=== PATIENT | male | born 1965 | race Caucasian/White ===

== ENCOUNTER 2017-03-15 16:58 | Emergency (ER) | payer BC ==
[2017-03-15 17:13] VITALS: BP 135/90
--- NOTE | 2017-03-15 18:07 | RAD ---
HISTORY: Left ankle pain COMPARISONS: None VIEWS: 3, Frontal, lateral, and oblique views of the left ankle FINDINGS: BONE DENSITY: Normal. BONES: There is nondisplaced fracture of the distal fibula. JOINTS: There is no arthropathy. There is joint effusion. ALIGNMENT: There is no dislocation. SOFT TISSUES: Unremarkable. OTHER FINDINGS: None. IMPRESSION: 1. NONDISPLACED FRACTURE OF THE LATERAL MALLEOLUS. 2. JOINT EFFUSION.
[2017-03-15] MEDS ORDERED: oxyCODONE/Acetamin 5/325 MG* TAB PO ONE (18:49)
--- NOTE | 2017-03-15 19:59 | ED ---
Lower Extremity - HPI Summary HPI Summary: 51M presents with left ankle pain for a day. He rolled his ankle in. He denies any numbness or tingling. He has swelling over the lateral aspect of his ankle. He has still be able to ambulate with it. [place] is from out of town. He has not taken anything for pain. He states he only has pain if he tries to move it. He denies any previous injury to the area. - History of Current Complaint Chief Complaint: EDExtremityLower Stated Complaint: LEFT ANKLE INJURY Time Seen by Provider: 03/15/17 18:42 Pain Intensity: 5 PMH/Surg Hx/FS Hx/Imm Hx Endocrine/Hematology History: Denies: Hx Anticoagulant Therapy Cardiovascular History: Denies: Hx Hypertension Infectious Disease History: Denies: Traveled Outside the [place] in Last 30 Days - Family History Known Family History: Positive: Cardiac Disease - Social History Alcohol Use: Occasionally Substance Use Type: Reports: None Smoking Status (MU): Never Smoked Tobacco Review of Systems Negative: Fever Negative: Chest Pain Negative: Shortness Of Breath Positive: Myalgia - left ankle All Other Systems Reviewed And Are Negative: Yes Physical Exam Triage Information Reviewed: Yes Vital Signs On Initial Exam: Initial Vitals Temp Pulse Resp BP Pulse Ox 98.3 F 67 20 135/90 98 03/15/17 17:05 03/15/17 17:05 03/15/17 17:05 03/15/17 17:05 03/15/17 17:05 Vital Signs Reviewed: Yes Appearance: Positive: Well-Appearing Skin: Positive: Warm, Dry Head/Face: Positive: Normal Head/Face Inspection Eyes: Positive: Normal, Conjunctiva Clear Respiratory/Lung Sounds: Positive: Clear to Auscultation, Breath Sounds Present Cardiovascular: Positive: Normal, RRR Musculoskeletal: Positive: Limited @ - left ankle, Edema Left - lateral aspect of ankle, Other - good pulses, capillary refill<2secs Procedures - Splinting Location: ankle Hand-Made Type: fiberglass Splint: sugar-tong Pre-Proc Neuro Vasc Exam: normal Post-Proc Neuro Vasc Exam: normal Diagnostics - Vital Signs Vital Signs Temp Pulse Resp BP Pulse Ox 03/15/17 17:05 98.3 F 67 20 135/90 98 - Laboratory Lab Statement: Any lab studies that have been ordered have been reviewed, and results considered in the medical decision making process. - Radiology ankle Xray Interpretation: Positive (See Comments) - fibula fx Radiology Interpretation Completed By: Radiologist Lower Extremity Course/Dx - Course Course Of Treatment: 51M presents with left ankle pain for a day. He rolled his ankle in. He denies any numbness or tingling. He has swelling over the lateral aspect of his ankle. He has still be able to ambulate with it. He is from [place] of town. He has not taken anything for pain. He states he only has pain if he tries to move it. He denies any previous injury to the area. neurovascular intact. edema over lateral aspect of ankle. xray shows fibula fracture. placed in sugar tong splint. told to follow up with ortho. patient understands and agrees with plan. - Diagnoses Differential Diagnosis/HQI/PQRI: Positive: Fracture (Closed), Sprain, Strain Provider Diagnoses: Left fibular fracture Discharge - Discharge Plan Condition: Good Disposition: HOME Prescriptions: oxyCODONE TAB* [Roxycodone TAB 5 mg*] 5 mg PO Q6H PRN #8 tab MDD 4 PRN Reason: Pain Patient Education Materials: Ankle Fracture (ED) Referrals: Non Staff,Doctor [Primary Care Provider] - Additional Instructions: Use crutches and stay nonweight bearing Keep splint on area and keep dry Call ortho office to set up appointment for follow up Use ibuprofen for pain every 6 hours and use narcotic for breakthrough pain Ice, elevate Return to ED if develop numbness or tingling or any new or worsening symptoms
[2017-03-15] MEDS ORDERED: Ibuprofen TAB* 800 MG PO ONE (20:00)
== END 2017-03-15 20:51 | disposition home or self-care (01) ==
LOC: ED 16:58
DX: S82.402A Unspecified fracture of shaft of left fibula, initial encounter for closed fracture (principal); X50.1XXA Overexertion from prolonged static or awkward postures, initial encounter; Y93.9 Activity, unspecified; Y92.9 Unspecified place or not applicable
CPT/HCPCS: 99282; A9270-GY